=== PATIENT | female | born 1955 | race Caucasian/White ===

== ENCOUNTER 2022-04-30 06:32 | Day surgery (SDC) | payer MEDICARE, BC, SELFPAY ==
[2022-04-30] MEDS: KETOROLAC OPHTH 0.5% 1 DROP EYE-LEFT ×2 (06:55→07:00)
[2022-04-30] MEDS: TETRACAINE 0.5% OPHTH 1 DROP EYE-LEFT ×2 (06:55→07:00)
[2022-04-30] MEDS: SODIUM CHLORIDE 0.9 % (FLUSH) 10 ML SYRINGE IVF (07:15)
[2022-04-30 07:18] VITALS: BP 142/69; PULSE 62; RESP 20; TEMP 36.6; O2SAT 100
[2022-04-30 07:21] VITALS: BMI 41.1
[2022-04-30] MEDS: TETRACAINE 0.5% OPHTH 2 DROP EYE-LEFT (08:02)
[2022-04-30] MEDS: BALANCED SALT IRRIG SOLN 15 ML EYE-LEFT (08:07)
--- NOTE | 2022-04-30 08:11 | W.ANESCHARGE ---
Anesthesia Charges Start Date/Time Anesthesia Start Date: 04/30/22 Anesthesia Start Time: 07:58 Stop Date/Time Anesthesia Stop Date: 04/30/22 Anesthesia Stop Time: 08:28 Summary Emergency: No
[2022-04-30 08:27] VITALS: BP 149/71; PULSE 62; RESP 20; O2SAT 96
--- NOTE | 2022-04-30 08:36 | PM.PROC ---
Procedure Note Date Seen: 04/30/22 Will [facility] bill your pro fee for this procedure?: Yes Procedure Description: SURGEON: Marissa Fontaine MD PREOPERATIVE DIAGNOSIS: Nuclear sclerotic cataract, left eye. POSTOPERATIVE DIAGNOSIS: Nuclear sclerotic cataract, left eye. NAME OF OPERATION: Phacoemulsification of cataract with posterior chamber intraocular lens implantation in the left eye. ANESTHESIA: Topical. ESTIMATED BLOOD LOSS: Less than 2 cc. COMPLICATIONS: None. PATHOLOGY SPECIMEN: None. INDICATIONS: See consult note for details. The risks, benefits and alternatives of the procedure were explained to the patient, who elected to proceed and signed informed consent to do so. PROCEDURE: The patient was brought to the pre-holding area where the left eye was identified as the operative eye. I placed my initials above this eye. The patient received eye drops consisting of 0.5% tetracaine, 1% tropicamide, 10% phenylephrine, and 0.5% ketorolac. The patient was then brought to the operating room where the left eye was again identified as the operative eye. The eye was prepped with Betadine and draped in the usual sterile ophthalmic fashion. A #15 super-sharp blade was used to create a paracentesis site. 1% non-preserved intracameral lidocaine was injected into the anterior chamber. Endocoat was injected into the anterior chamber. A 2.4 mm keratome was used to create a three-plane self-sealing incision 1 mm anterior to the temporal limbus. A cystotome was used to create an anterior capsular leaflet. The Utrata forceps were used to extend this to form a continuous curvilinear capsulorrhexis. Hydrodissection was performed. The cataract was removed with phacoemulsification using the [id number] technique. The irrigation and aspiration tip was used to remove the remaining cortex. Healon was injected into the capsular bag. An PARK ZCB00 intraocular lens of 19.0 diopters was injected into the capsular bag. The irrigation and aspiration tip was used to remove the remaining viscoelastic. Balanced salt solution on a cannula was used to hydrate the wound, and the wound was found to be watertight. The pupil was noted to be round. DISPOSITION: The patient was taken to the recovery room and discharged to home in stable condition. The patient was instructed to call me or go to the emergency department with any sudden change, including dramatic loss of vision, severe pain in the eye or eyebrow region, nausea, or vomiting. The patient will follow up in the clinic tomorrow morning. Surgeon: Marissa Fontaine MD
--- NOTE | 2022-04-30 08:46 | W.ANESCHARGE ---
Anesthesia Charges Start Date/Time Anesthesia Start Date: 04/30/22 Anesthesia Start Time: 07:58 Stop Date/Time Anesthesia Stop Date: 04/30/22 Anesthesia Stop Time: 08:28 Summary Emergency: No
--- NOTE | 2022-04-30 08:58 | SUR.PHASEII ---
The eye drops brought by the patient (Ketorolac and Prednisolone) are examined and I have determined they are labeled by the patient's pharmacy for this patient as prescribed by the surgeon. The bottles are intact, recently obtained and appear to be correct.
--- NOTE | 2022-04-30 10:44 | SUR.PREOP ---
0650 TIME?OUT:? PT/RN/MDA?VERIFICATION?OF?SURGICAL?SITE,?PROCEDURE,?AND?CONSENT OBTAINED?PRIOR?TO?INVASIVE?PROCEDURE.
== END 2022-04-30 08:52 | disposition home or self-care (01) ==
PROVIDERS: Visit Provider Ophthalmology
PROC: (CPT 66984; principal; 2022-04-30 06:45)
DX: H25.12 Age-related nuclear cataract, left eye (principal)
CPT/HCPCS: 66984; 00142; A9270; J2250; J3010; V2632

== ENCOUNTER 2022-05-16 05:56 | Day surgery (SDC) | payer MEDICARE, BC, SELFPAY ==
[2022-05-16] MEDS: TETRACAINE 0.5% OPHTH 1 DROP EYE-RIGHT ×2 (06:15→06:20)
[2022-05-16] MEDS: KETOROLAC OPHTH 0.5% 1 DROP EYE-RIGHT ×2 (06:15→06:20)
[2022-05-16 06:24] VITALS: BMI 39.4
[2022-05-16 06:43] VITALS: BP 152/68; PULSE 65; RESP 16; TEMP 36.3; O2SAT 99
[2022-05-16] MEDS: BALANCED SALT IRRIG SOLN 15 ML EYE-RIGHT (06:56)
[2022-05-16] MEDS: TETRACAINE 0.5% OPHTH 2 DROP EYE-RIGHT (06:56)
--- NOTE | 2022-05-16 07:42 | W.ANESCHARGE ---
Anesthesia Charges Start Date/Time Anesthesia Start Date: 05/16/22 Anesthesia Start Time: 07:10 Stop Date/Time Anesthesia Stop Date: 05/16/22 Anesthesia Stop Time: 07:40 Summary Emergency: No
[2022-05-16] MEDS: ONDANSETRON 2 MG/ML inj 4 MG IVP (07:45)
--- NOTE | 2022-05-16 07:54 | W.ANESCHARGE ---
Anesthesia Charges Start Date/Time Anesthesia Start Date: 05/16/22 Anesthesia Start Time: 07:10 Stop Date/Time Anesthesia Stop Date: 05/16/22 Anesthesia Stop Time: 07:40 Summary Emergency: No
[2022-05-16 07:57] VITALS: BP 148/72; PULSE 64; RESP 16; TEMP 36.2; O2SAT 100
--- NOTE | 2022-05-16 10:56 | P.PCN_ITS ---
Procedure Note Date Seen: 05/16/22 Will [facility] bill your pro fee for this procedure?: Yes Procedure Description: SURGEON: Marissa Fontaine MD PREOPERATIVE DIAGNOSIS: Nuclear sclerotic cataract, right eye. POSTOPERATIVE DIAGNOSIS: Nuclear sclerotic cataract, right eye. NAME OF OPERATION: Phacoemulsification of cataract with posterior chamber intraocular lens implantation in the right eye. ANESTHESIA: Topical. ESTIMATED BLOOD LOSS: Less than 2 cc. COMPLICATIONS: None. PATHOLOGY SPECIMEN: None. INDICATIONS: See consult note for details. The risks, benefits and alternatives of the procedure were explained to the patient, who elected to proceed and signed informed consent to do so. PROCEDURE: The patient was brought to the pre-holding area where the right eye was identified as the operative eye. I placed my initials above this eye. The patient received eye drops consisting of 0.5% tetracaine, 1% tropicamide, 10% phenylephrine, and 0.5% ketorolac. The patient was then brought to the operating room where the right eye was again identified as the operative eye. The eye was prepped with Betadine and draped in the usual sterile ophthalmic fashion. A #15 super-sharp blade was used to create a paracentesis site. 1% non-preserved intracameral lidocaine was injected into the anterior chamber. Endocoat was injected into the anterior chamber. A 2.4 mm keratome was used to create a three-plane self-sealing incision 1 mm anterior to the temporal limbus. A cystotome was used to create an anterior capsular leaflet. The Utrata forceps were used to extend this to form a continuous curvilinear capsulorrhexis. Hydrodissection was performed. The cataract was removed with phacoemulsification using the [id number] technique. The irrigation and aspiration tip was used to remove the remaining cortex. Healon was injected into the capsular bag. An PARK ZCB00 intraocular lens of 18.5 diopters was injected into the capsular bag. The irrigation and aspiration tip was used to remove the remaining viscoelastic. Balanced salt solution on a cannula was used to hydrate the wound, and the wound was found to be watertight. The pupil was noted to be round. DISPOSITION: The patient was taken to the recovery room and discharged to home in stable condition. The patient was instructed to call me or go to the emergency department with any sudden change, including dramatic loss of vision, severe pain in the eye or eyebrow region, nausea, or vomiting. The patient will follow up in the clinic tomorrow morning. Surgeon: Marissa Fontaine MD
== END 2022-05-16 08:15 | disposition home or self-care (01) ==
PROVIDERS: PCP Student in an Organized Health Care Education/Training Program; Visit Provider Ophthalmology
PROC: (CPT 66984; principal; 2022-05-16 06:15)
DX: H25.11 Age-related nuclear cataract, right eye (principal)
CPT/HCPCS: 66984; 00142; A9270; J2250; J2405; J3010; V2632

== ENCOUNTER 2025-02-02 11:14 | Emergency (ER) | payer OTHER, MEDICARE, BC, SELFPAY ==
[2025-02-02 11:24] VITALS: BP 128/74; PULSE 73; RESP 18; TEMP 36; O2SAT 96; BMI 43.9
--- NOTE | 2025-02-02 12:09 | CRLHL7_ITS ---
For Patients: As a result of the Century Cures Act, medical imaging exams and procedure reports are released immediately into your electronic medical record. You may view this report before your referring provider. If you have questions, please contact your health care provider. INDICATION: Ankle Injury, fall from a ladder at work TECHNIQUE: Ankle radiograph 3 views left COMPARISON: None FINDINGS: Bone: Moderate diffuse osteopenia is present. Remote fracture deformity of the distal fibula is suspected. There is a small plantar calcaneal spur present. Joint: The ankle mortise joint and the visualized hindfoot joints are unremarkable in appearance. No significant ankle effusion is seen. Soft tissue: Nodular calcifications are present in the medial soft tissues of the distal calf. No radiopaque foreign bodies are seen. IMPRESSIONS: 1. No acute osseous injuries or abnormalities are noted. 2. Nodular calcifications are present in the medial soft tissues of the distal calf. Correlation with clinical history is recommended to exclude dermatomyositis. Dictated by Dong Lama MD @ 02/02/2025 12:59:30 PM Dictated by: Dong Lama MD @ 02/02/2025 12:59:31 (Electronically Signed)
--- NOTE | 2025-02-02 12:09 | CRLHL7_ITS ---
For Patients: As a result of the Century Cures Act, medical imaging exams and procedure reports are released immediately into your electronic medical record. You may view this report before your referring provider. If you have questions, please contact your health care provider. INDICATION: Foot Injury, fall from a ladder at work TECHNIQUE: Foot radiograph 3 views left COMPARISON: None FINDINGS: Bone: No acute fractures or aggressive bone lesions are identified. There is a small plantar calcaneal spur present. Evaluation of the digits on the lateral examination is moderately degraded due to overlapped digit positioning and toe flexion on all views. Moderate diffuse osteopenia is present. 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 Mild osteoarthritis of the 1st metatarsal-phalangeal joint is noted. No significant ankle effusion is seen. Soft tissue: Unremarkable. No radiopaque foreign bodies are seen. Sheet-like calcifications of the medial distal calf are noted. IMPRESSIONS: 1. No acute osseous injuries or abnormalities are noted. 2. Sheet-like calcifications of the medial distal calf are noted. Correlation with clinical history is recommended to exclude dermatomyositis. Dictated by Dong Lama MD @ 02/02/2025 12:58:38 PM Dictated by: Dong Lama MD @ 02/02/2025 12:58:43 (Electronically Signed)
--- NOTE | 2025-02-02 13:47 | ED.GENADULT ---
HPI - General Adult General Time Seen by Provider: 13:47 Date Seen: 02/02/25 Chief complaint: Extremity Pain/Injury, Lower Stated complaint: L foot injury at work Time Seen by Provider: 02/02/25 13:40 Source: patient Mode of arrival: ambulatory Limitations: no limitations History of Present Illness HPI narrative: [place] 69-year-old female with hypertension, hyperlipidemia presents emergency department via private car from work with a left foot injury. Patient states she was at work walking down a step ladder on the 2nd step to the bottom she felt pain in the top of her left foot, she denies rolling her ankle. There has not been any significant swelling, popping sensation. She was able to ambulate on that foot. Patient currently takes Plavix from previous [place]. She denies any numbness or tingling or swelling to the area. No other injury noted. Related Data Home Medications ?Medication ?Instructions ?Recorded ?Confirmed aspirin 81 mg chewable tablet 81 mg PO DAILY 04/29/22 02/02/25 atorvastatin 80 mg tablet (Lipitor) 80 mg PO DAILY 04/29/22 02/02/25 clopidogrel 75 mg tablet (Plavix) 75 mg PO DAILY 04/29/22 02/02/25 losartan 25 mg tablet (Cozaar) 25 mg PO DAILY 04/29/22 02/02/25 metoprolol succinate 25 mg 12.5 mg PO DAILY 04/29/22 02/02/25 tablet,extended release 24 hr (Toprol XL) nitroglycerin 0.3 mg sublingual 0.3 mg sublingual Q5M 04/29/22 02/02/25 tablet (Nitrostat) diphenhydramine HCl 25 mg capsule 75 mg PO QHS 02/02/25 02/02/25 (Allergy (diphenhydramine)) Allergies Allergy/AdvReac Type Severity Reaction Status Date / Time amoxicillin Allergy Severe Verified 02/02/25 11:21 Sulfa (Sulfonamide Allergy Severe Verified 02/02/25 11:21 Antibiotics) nickel Allergy Intermediate Blister Verified 02/02/25 11:21 red dye Allergy Intermediate Blister Verified 02/02/25 11:21 Review of Systems Status of ROS: Reports: 10 or more systems reviewed and unremarkable except as noted in History and below [facility] Medical History (Updated 02/02/25 @ 13:57 by Pio Houston MD) CAD (coronary artery disease) ?I25.10 - Atherosclerotic heart disease of [place] coronary artery without angina pectoris (ICD-10) Surgical History (Updated 04/29/22 @ 10:37 by Joann Watt RN) Hx of heart artery stent ?Z95.5 - Presence of coronary angioplasty implant and graft (ICD-10) Social History Do you use any of these nicotine containing products: None How often do you have a drink containing alcohol: never How often do you have six or more drinks on one occasion: Never AUDIT-C Alcohol total score: 0 Non-prescribed substance use: denies use Caffeine: Yes Are you using contraception or practicing any form of control: No Exam Narrative: Exam Narrative: General: NAD sitting comfortably Lungs: Clear to auscultation bilaterally Heart: Normal sinus rhythm S1-S2 Abdomen: Soft Muscle skeletal: Left lower extremity, no rashes, nontender the proximal tibia and fibula, tender to palpation the anterior proximal foot, no ecchymosis or swelling, nontender to palpation the lateral medial malleolus, active dorsal and plantar flexion with no difficulty, CMS intact. Neuro: Alert awake and oriented x3 Const: Vital Signs, click to edit/add: Vital Signs - 24 hr 02/02/25 11:24 Temperature 96.8 F L Pulse Rate [Pulse Oximeter] 73 Respiratory Rate 18 Blood Pressure [Ri ght Forearm] 128/74 Pulse Oximetry 96 Oxygen Delivery Me thod Room Air Course Course ED Course: 1:30 PM: aidet performed. Vitals are normal at this time. Workup will include imaging of the left foot and ankle XR 4+ views, patient does not want anything for pain, will plan to rule out fracture versus strain. Differential diagnosis include but not limited to strain, fracture, dislocation, ligament injury, arthritis as well as all etiologies Reevaluation(s) Time of Reevaluation #1: 13:51 Reevaluation #1: Imaging: IMPRESSIONS: 1. No acute osseous injuries or abnormalities are noted. 2. Sheet-like calcifications of the medial distal calf are noted. Correlation with clinical history is recommended to exclude dermatomyositis. Reevaluation #2: Patient was updated on imaging results, she was offered a surgical shoe but she declined at this time, will continue with RICE, Tylenol 1000 mg every 6 hours as needed for pain, follow-up with primary care provider as needed over the next 7-10 days, return precautions given. Vital Signs Vital signs: Initial Vital Signs Temperature 96.8 F L 02/02/25 11:24 Temperature Source Temporal Artery Scan 02/02/25 11:24 Pulse Rate 73 02/02/25 11:24 Pulse Rhythm Regular 02/02/25 11:24 Respiratory Rate 18 02/02/25 11:24 Blood Pressure 128/74 02/02/25 11:24 Blood Pressure Mean 92 02/02/25 11:24 Blood Pressure Position Sitting 02/02/25 11:24 Pulse Oximetry 96 02/02/25 11:24 Oxygen Delivery Method Room Air 02/02/25 11:24 Vital Signs Temperature 96.8 F L 02/02/25 11:24 Pulse Rate 73 02/02/25 11:24 Respiratory Rate 18 02/02/25 11:24 Blood Pressure 128/74 02/02/25 11:24 Pulse Oximetry 96 02/02/25 11:24 Oxygen Delivery Method Room Air 02/02/25 11:24 Temperature 96.8 F L 02/02/25 11:24 Pulse Rate 73 02/02/25 11:24 Respiratory Rate 18 02/02/25 11:24 Blood Pressure 128/74 02/02/25 11:24 Pulse Oximetry 96 02/02/25 11:24 Oxygen Delivery Method Room Air 02/02/25 11:24 Discharge Plan Discharge Clinical Impression: Injury of foot, left Patient Disposition: Home, Self-Care Instructions: P.R.I.C.E. Treatment (ED) Additional Instructions: Tylenol 1000 mg every 6 hours as needed for pain, continue with rest, ice, compression and elevation. Follow up with primary care provider if pain persists, 7-10 days. Consideration for further imaging at that time. Activity Level: No Restrictions Prescriptions: No Action aspirin 81 mg tablet,chewable 81 mg PO DAILY atorvastatin [Lipitor] 80 mg tablet 80 mg PO DAILY clopidogrel [Plavix] 75 mg tablet 75 mg PO DAILY losartan [Cozaar] 25 mg tablet 25 mg PO DAILY metoprolol succinate [Toprol XL] 25 mg tablet extended release 24 hr 12.5 mg PO DAILY nitroglycerin [Nitrostat] 0.3 mg tablet, sublingual 0.3 mg sublingual Q5M Rx Instructions: do not exceed 3 doses per episode diphenhydramine HCl [Allergy (diphenhydramine)] 25 mg capsule 75 mg PO QHS Follow Up/Referrals: Agustín Espinoza MD [Primary Care Provider] - Stand Alone Forms: [employer] Info Instructions
--- OUTSIDE RECORDS SUMMARY | 2025-02-02 17:22 | XMS_ITS | Encounter Summary ---
Author Organization [facility] Address [address] [place] [address] Care Team Providers Care Plumber And Tinner Name Role Phone Keegan Espinoza M.D. Primary Care Provider [phone] Reason for Visit * Reason Comments Med Refill Encounter Details Date Type Department Care Team (Late st Contact Info) Description 12/23/2024 Refill Department of Orthopedic Surgery in [place], [place] [address] [place] [phone] Mary Lou Sow D.P.M. [address] [place] [phone] Med Refill Social History Tobacco Use Types Packs/Day Years Used Date Smoking Tobacco: Never Smokeless Tobacco: Never Alcohol Use Standard Drinks/Week Comments Not Currently 0 (1 standard drink = 0.6 oz pur e alcohol) Humiliation, Afraid, Rape, and Kick questionnair e Answer Date Recorded Within the last year, have y ou been afraid of your partner or ex-partner? No 11/22/2021 Within the last year, have y ou been humiliated or emotionally abused in other ways by your partner or ex-partner? No Within the last year, have y ou been kicked, hit, slapped, or otherwise physically hurt by your partner or ex-partner? No 11/22/2021 Within the last year, have y ou been raped or forced to have any kind of sexual activity by your partner or ex-partner? No 11/22/2021 Social Connection and Isolat ion Panel [NHANES] Answer Date Recorded In a typical week, how many times do you talk on the phone with family, friends, or neighbors? More than three times a week 11/22/2021 How often do you get togethe r with friends or relatives? Three times a week 11/22/2021 How often do you attend chur ch or voodoo services? 1 to 4 times per year 11/22/2021 Do you belong to any clubs o r organizations such as yazdanism groups, unions, fraternal or athletic groups, or school groups? No 11/22/2021 How often do you attend meet ings of the clubs or organizations you belong to? Never 11/22/2021 Are you , , di vorced, , never , or living with a partner? 11/22/2021 AUDIT-C Answer Date Recorded Q1: How often do you have a drink containing alc ohol? Never 11/22/2021 Average Number of Drinks Not on file 022 Frequency of Binge Drinking Not on file 12/2021 Overall Financial Resource Strain (CARDIA) Answe r Date Recorded How hard is it for you to pa y for the very basics like food, housing, medical care, and heating? Not hard at all 11/22/2021 PHQ-2 Answer Date Recorded PHQ-2 Score 0 11/02/2023 [facility] - Occupational Stress Questionnaire Answer Date Recorded Do you feel stress - tense, restless, nervous, or anxious, or unable to sleep at night because your mind is troubled all the time - these days? Not at all 11/22/2021 Exercise Vital Sign Answer Date Recorde d On average, how many days pe r week do you engage in moderate to strenuous exercise (like a brisk walk)? 5 days 11/22/2021 On average, how many minutes do you engage in exercise at this level? 150+ min 11/22/2021 Hunger Vital Sign Answer Date Recorded Within the past 12 months, y ou worried that your food would run out before you got the money to buy more. Never true 11/23/19 22 Within the past 12 months, t he food you bought just didn't last and you didn't have money to get more. Never true 11/22/2021 PRAPARE - Transportation Answer Date Re corded In the past 12 months, has l ack of transportation kept you from medical appointments or from getting medications? No 12/2021 In the past 12 months, has l ack of transportation kept you from meetings, work, or from getting things needed for daily living? No 11/22/2021 Housing Stability Vital Sign Answer Kodi e Recorded In the last 12 months, was t here a time when you were not able to pay the mortgage or rent on time? No 11/22/2021 In the last 12 months, how many places have you lived? 1 11/22/2021 In the last 12 months, was t here a time when you did not have a steady place to sleep or slept in a group home (including now)? No 11/22/2021 Depression Answer Date Recor ded PHQ-9 Total Score (max 27) 9 12/31 Nutrition Answer Date Recorded On average, how many serving s of fruits and vegetables do you eat per day (serving size is equal to 1 cup or approximately the size of a tennis ball)? 2-3 11/22/2021 Dental Answer Date Recorded Dental: Regular Dentist Unknown 11/30/19 25 Employment Answer Date Recorded Employment status Employed and actively working without restrictions 11/22/2021 Education Answer Date Recorded What is the highest level of school you have completed or the highest degree you have received? 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 [address] [place] [phone] Discharge Disposition: Home or Self Care 03/22/2025 2:00 PM CDT Office Visit Department of Family Medicine, [facility], in [address] [phone] documented as of this encounter Visit Diagnoses Diagnosis Keratosis Plantar documented in this encounter Additional Health Concerns Assessment Noted Time PHQ-9 Depression Total Score: 9 01/01/20 22 8:46 AM CDT documented as of this encounter Care Teams Plumber And Tinner Relationship Specialty Start Date End Date Keegan Espinoza M.D. [address] [place] [phone] PCP - General 03/05/17 documented as of this encounter
--- OUTSIDE RECORDS SUMMARY | 2025-02-02 17:22 | XMS_ITS | Encounter Summary ---
Author Organization [facility] Address [address] [place] [address] Care Team Providers Care Verification Manager Name Role Phone Keegan Espinoza M.D. Primary Care Provider [phone] Reason for Referral * Outpatient (Routine) - Authorized Specialty Diagnoses / Procedures Referred By Contac t Referred To Contact Keegan Espinoza M.D. [id number] [place] [phone] Phone: tel: fax: [facility] Region Referral ID Status Reason Start Date Expiration Date V isits Requested Visits Authorized [id number] Authorized 12/28/2024 06/29/2026 1 1 Scheduling Instructions Nurse AWV Do not schedule prior to due date to ensure insurance coverage Visit: Medicare Annual Wellness due on 11/03/2024. Encounter Details Date Type Department Care Team (Late st Contact Info) Description 12/28/2024 Orders Only [facility] Keegan Espinoza M.D. [phone] [place] [phone] Social History Tobacco Use Types Packs/Day Years [...] week 11/22/2021 How often do you attend [facility] or catholic services? 1 to 4 times per year 11/22/2021 Do you belong to any clubs o r organizations such as christianity groups, unions, fraternal or athletic groups, or [...] Answer Date Recorded PHQ-2 Score 0 11/02/2023 [facility] of Occupat ional Health - Occupational Stress [...] place to sleep or slept in a halfway (including now)? 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 [address] [place] [phone] Discharge Disposition: Home or Self Care 03/22/2025 2:00 PM CDT Office Visit Department of Family Medicine, [facility], in [address] [phone] Scheduled Referrals Name Type Priority Associated Diagnoses Orde r Schedule Primary Care nurse visit (clinic) - [facility] Region; Medicare Annual Wellness Outpatient Referral Routine Expected: 01/25/2025, Expires: 06/16/2025 documented as of this encounter Visit Diagnoses Not on filedocumented in this encounter Additional Health Concerns Assessment Noted Time PHQ-9 Depression Total Score: 9 01/01/20 22 8:46 AM CDT documented as of this encounter Care Teams Verification Manager Relationship Specialty Start Date End Date Keegan Espinoza M.D. [address] [place] [phone] PCP - General 03/05/17 documented as of this encounter
--- OUTSIDE RECORDS SUMMARY | 2025-02-02 17:22 | XMS_ITS | Clinical Summary ---
Author Organization [facility] Address [address] [place] [id number] Care Team Providers Care Hand Scudder Name Role Phone Pcp, No Primary Care Provider Unavailabl e Medications No known medications Active Problems Problem Noted Date Diagnosed Date Early dry stage nonexudative age-related macular degeneration of both eyes 01/14/2018 Family History Medical History Relation Name Comments Macular degeneration Brother 1 Josiah Macular degeneration Brother 2 Rick Macular degeneration Mother Relation Name Status Comments Brother 1 Josiah Alive Brother 2 Rick Alive Mother Social History Tobacco Use Types Packs/Day Years Used Date Smoking Tobacco: Never Smokeless Tobacco: Never Alcohol Use Standard Drinks/Week Comments No 0 (1 standard drink = 0.6 oz pur e alcohol) Comments Unknown Sex and Gender Information Value Date Recorded Sex Assigned at Not on file Legal Sex Female 7:38 AM [employer] Gender Identity Not on file Sexual Orientation Not on file Obstetrics History Plan of Treatment Health Maintenance Due Date Last Done Comments Tdap 1965 Depression screening for age 12+ 1966 BMI (ht and wt on same day) for age 18+ 1972 Hepatitis C screening for age 18-79 1972 Tetanus booster 1974 Colonoscopy through age 75 1999 Lipids for age 45-75 1999 Mammogram for age 45-75 1999 Pneumococcal series for age 50+ (1 of 1 - PCV) 004 Zoster (shingles) series for age 50+ (1 of 2) 08/13/20 04 DEXA/DXA scan for age 65+ 2019 03/15/2009 COVID-19 vaccine series ( - 2023- season) Influenza Vaccine (Season Ended) 2025 RSV vaccine for adults or pr egnancy (1 - 1-dose 75+ series) 2029 Procedures Procedure Name Priority Date/Time Associated Diagnosis Comments XR DXA BONE DENSITY 2 SITES AXIAL Routine 03/15/2009 1:56 PM CDT Post-Menopausal from Last 3 Months or Most Recently Relevant to Health Maintenance Results * XR DEXA BONE DENSITY 2 SITES (03/15/2009 1:56 PM CDT) Anatomical Region Laterality Modality Spine, HIPS, HIPL, HIPR Other 03/15/2009 1:56 PM CDT Narrative 03/20/2009 11:38 AM CDT Please see scanned document for results of this study. Procedure Note Adilia Shin PA - 03/21/2009 Please see scanned document for results of this study. us Provider Referring DEXA Final Result from Last 3 Months or Most Recently Relevant to Health Maintenance Insurance [employer] [place] [employer] [place] ONLY Care Teams Hand Scudder Relationship Specialty Start Date End Date Pcp, No . PCP - General 11/04/17
--- OUTSIDE RECORDS SUMMARY | 2025-02-02 17:22 | XMS_ITS | Data Portability ---
Author Organization [place] [facility] [employer] Address [address] [place] [address] Assessment Encounter Date Assessment Date Assessment LastModified by Organization Details LastModified Time 06/09/2024 06/09/2024 I did discussed findings with the patient as detailed down below. At this time, patient was advised that we will await her custom orthotics mid June and will presents back to us for modifications moving forward. I did discuss that she does have evidence of osteopenia on radiographs and I would recommend that she obtain a bone density scan through her primary care provider for evaluation. She endorses that she was previously recommended to undergo this by her PCP, however did not obtain it at the time. Not available 06/10/2024 10:43:43 08/25/2024 08/25/2024 I did discussed findings with the patient as detailed down below. At this time I did modify her previously casted custom orthotics to include an offloading 5th metatarsal base cutout and she mentions that she had significant relief in symptoms. I did recommended to the patient to pursue treatment if recommended by her PCP for her osteoporosis. Will be seen back in a few weeks for a recheck. Not available 08/26/2024 10:10:36 09/22/2024 09/22/2024 I did discussed findings with the patient as detailed down below. At this time her previous orthotic modifications have been greatly helpful at reducing her symptoms and we will modify her other orthotics at this time. The patient will be seen back in a few weeks after modification of this new set for a recheck. Not available 09/23/2024 14:43:19 12/15/2024 12/15/2024 I did discussed findings with the patient as detailed down below. At this time her previous orthotic modifications have been greatly helpful at reducing her symptoms and we will modify her orthotics at this time with further padding. The patient attempted these in clinic and she noticed a great reduction in symptoms. We will proceed with further modification at this time. The patient will be seen back in a few weeks after modification of this new set for a recheck. Not available 12/16/2024 12:00:05 Plan of Treatment Reminders Order Date Submit Date Provider Last Modified By Organization Details Last Modified Time Details Appointments Office Visit 2024 03:30P M Red Boris Not available Not available Not available Lab None recorde d. Referral None recorde d. Procedures None recorde d. Surgeries None recorde d. Imaging None recorde d. Medication Orders None recorde d. Patient TargetsNo targets recorded. Patient InstructionsNo instructions recorded. Reason for Referral None Reported. Medical Equipment None Reported. Medications Name Sig Start Date Stop Date Status Note LastModified by Organization Details LastModified Time atorvastatin 80 mg tablet TAKE ONE TABLET BY MOUTH ONE TIME DAILY* active Not Available Not Available Not Available fluorouracil 5 % topical cream Apply topically twice a day to skin lesions soles of feet* active Not Available Not Available No t Available phentermine 15 mg capsule TAKE ONE CAPSULE BY MOUTH EVERY DAY IN THE MORNING.* active Not Available Not Available No t Available triamcinolon e acetonide 0.1 % topical cream APPLY TO AFFECTED AREAS OF SKIN (RASH ON BACK) TWICE DAILY NEEDED FOR UP TO 2 WEEKS AT A TIME.* active Not Available Not Available No t Available cefadroxil 500 mg capsule TAKE 1 CAPSULE BY MOUTH TWICE DAILY FOR 7 DAYS active Not Available Not Available No t Available ciclopirox 8 % topical solution Apply over nail and surrounding skin once daily at bedtime. Apply daily over previous coat. After seven (7) days, may remove with alcohol and continue cycle.* active Not Available Not Available No t Available benzonatate 100 mg capsule TAKE ONE CAPSULE BY MOUTH THREE TIMES DAILY NEEDED FOR COUGH* active Not Available Not Available N ot Available erythromycin 5 mg/gram (0.5 %) eye ointment apply 1 cm ribbon into the conjunctiva l sac in both eyes by ophthalmic route once in the evening before bedtime* active Not Available Not Available No t Available losartan 25 mg tablet TAKE ONE TABLET BY MOUTH ONE TIME DAILY* active Not Available Not Available Not Available Drysol Dab-O-Matic 20 % topical solution Apply topically to soles of feet at bedtime* active Not Available Not Available No t Available metoprolol succinate ER 25 mg tablet,exten ded release 24 hr Take 1 tablet (25 mg total) by mouth daily. Do not crush or chew.* active Not Available Not Available No t Available fluocinonide 0.05 % topical cream Apply topically to the affected area(s) of dermatitis up to 2 times a day as needed for rash.* active Not Available Not Available N ot Available doxycycline hyclate 100 mg tablet TAKE ONE TABLET BY MOUTH TWICE DAILY* active Not Available Not Available No t Available Vitals None Recorded Social History None recorded. Functional Status None recorded. Mental Status None recorded. Family History Nothing Reported. Medical History No medical history recorded. Gynecological HistoryNo gynecological history recorded. 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 [id number] 771957 M21.622 Osteopenia [id number] M85 .872 [facility] [address] [place] [id number] 4 08/25/2024 16:30:37 08/26/2024 10:52:57 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 [id number] 678583 M21.622 Osteopenia 947551502 M85 .872 Now formal diagnosis of osteoporos is on bone scan [id number] Red Escalante [facility] [place] [facility] [address] [place] [id number] 4 09/22/2024 16:10:50 09/23/2024 15:41:21 Fat pad syndrome 575621172 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 1413113364 956770 M21.622 Osteopenia 898426243 M85 .872 Now formal diagnosis of osteoporos is on bone scan [id number] Red Escalante DPM [place] [facility] [address] [place] [address] 4 12/15/2024 16:20:14 12/16/2024 13:08:41 Fat pad syndrome 546735022 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 4999165317 364991 M21.622 Osteopenia 228228411 M85 .872 Now formal diagnosis of osteoporos is on bone scan Health Concerns Section Related Observation LastModified by Organization Detai ls LastModified Time None Recorded Concern Status LastModified by Organization Details LastModified Time None Recorded Advance Directives Directive None Recorded Payers Encounter Date Sequence Insurance Name Policy Number Policy Tejeda Covered Member ID Tejeda Member ID Guarantor Name 06/09/2024 1 [employer] [id number] Whitney Stollo [id number] Torie Delfino 08/25/2024 1 [place] [id number] Whitney Stollo [id number] Torie Delfino 09/22/2024 1 [place] [id number] Whitney Stollo [id number] Torie Delfino 12/15/2024 1 [place] [id number] Whitney Stollo [id number] Torie Delfino Notes Date Note Type Note Provider Name and Address Organization Details Recorded Time 06/09/2024 text/html Patient 68 y/o n ew patient female presents here today for second opinion regarding left sided foot pain. Mentions that the pain was located under the outside aspect of the left foot. Patient stated that she was previously seen by [facility] for similar complaint. They recommended her the use of custom orthotics which is currently being made by [employer] and will arrive in June. She was also given medication to reduce callus formation. She endorsed that at this time she continues to have pain daily and present today for further cares and a 2nd opinion Red Escalante DPM [address] [place], [address], [facility] 06/10/2024 10:43:48 08/25/2024 text/html Patient 68 y/o established patient female presents here today for left sided foot pain. Mentions that the pain is located under the outside aspect of the left foot. Patient stated that she was previously seen by [facility] for similar complaint. They recommended her the use of custom orthotics which she mentions was made by [employer] in June, however she did not have any symptom relief with the use of these devices. She endorsed that at this time she continues to have pain daily and present today for further cares. Red Escalante DPM [address] [place] [address], [phone], [facility] 08/26/2024 10:10:43 09/22/2024 text/html Patient 69 y/o established patient female presents here today for recheck of foot pain. The patient mentions that since starting orthotic modifications she has noticed total resolution of foot pain at this time. She is interested in pursuing modifications to another pair of orthotics at this time. Red Escalante DPM [address] [place], [address], [facility] 09/23/2024 14:43:28 12/15/2024 text/html Patient 69 y/o established patient female presents here today for recheck of foot pain. The patient mentions that since starting orthotic modifications she has noticed total resolution of foot pain for some time, however she is inquiring about further modification due to slight increase in symptoms at this time. Red Escalante DPM [address] [place], [address], [facility] 12/16/2024 12:00:15 OBGyn Episode No OBEpisode recorded.
--- OUTSIDE RECORDS SUMMARY | 2025-02-02 17:22 | XMS_ITS | Clinical Summary ---
Author Organization [facility] Address [address] [place] [address] Care Team Providers Care Research Advisor Name Role Phone Keegan Espinoza M.D. Primary Care Provider [phone] [phone] Source Comments Patient records contain information from all sites at [facility]. For routine questions regarding patient records, call [phone] during business hours, M-F 8:00 AM - 5:00 PM Central Time. Record requests for emergency care only can be directed to [phone] at any time.[facility] Allergies Active Allergy Reactions Criticality Noted Date Comments Adhesive Tape-Silicones Other (see comments) Low 01/16/2012 Nickel Rash Low 04/05/2013 Phenylephrine-Guaifene sin Itching Low 11/21/2011 Red Dye Rash High 10/10/2021 Sulfa (Sulfonamide Antibiotics) Rash Low 12/20/2012 Wheat Rash Low 04/05/2013 Rivaroxaban Other (see comments) High 11/04/2021 Medication contains red dye; patient experienced a burn type rash on skin Medications * This document contains information received from the source organization and may not represent a complete record from that organization. acetaminophen (TYLENOL) 500 mg tablet Take 1,500 mg by mouth 2 (two) times a day as needed for pain, headaches or fever. Active diphenhydrAMINE (BENADRYL) 50 mg capsule Take 50 mg by mouth every 6 (six) hours as needed. Active vitamins A,C,E-zinc-suhail er (ICAPS AREDS) 14,320 Units-226 mg-200 Units per capsule Take 1 capsule by mouth daily. Active fluocinonide (LIDEX) 0.05 % creamIndication s:Dermatitis Apply topically 2 (two) times a day as needed for rash. Apply to dermatitis up to twice daily as needed. . 60 g 3 4 Active TURMERIC ROOT EXTRACT ORAL Take by mouth. 2 capsules daily Active triamcinolone (Kenalog) 0.1 % cream APPLY TO AFFECTED AREAS OF SKIN (RASH ON BACK) TWICE DAILY NEEDED FOR UP TO 2 WEEKS AT A TIME.* Active metoprolol succinate (Toprol XL) 25 mg 24 hr tablet Take 1 tablet (25 mg total) by mouth daily. Do not crush or chew. 90 tablet 3 4 07/24/20 25 Active losartan (Cozaar) 25 mg tabletIndicatio ns:Hypertensive Heart Disease Without Heart Failure TAKE ONE TABLET BY MOUTH ONE TIME DAILY 90 tablet 5 Active atorvastatin (Lipitor) 80 mg tabletIndicatio ns:Atherosclero tic Heart Disease Of [place] Coronary Artery Without Angina Pectoris TAKE ONE TABLET BY MOUTH ONE TIME DAILY 90 tablet 5 Active fluorouraciL (Efudex) 5 % creamIndication s:Keratosis Plantar Apply topically twice a day to skin lesions soles of feet 40 g 5 Active Active Problems Problem Noted Date Diagnosed Date Osteoporosis 08/31/2024 Coronary Stent Status Post 01/06/2022 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 Hypertensive Heart Disease Without Heart Failure 03/05/2012 Resolved Problems Problem Noted Date Diagnosed Date Resolved Date ST Elevation Myocardial Infa rction Involving Left Anterior Descending Coronary Artery 12/23/2021 01/06/2022 ST Elevation Myocardial Infa rction Of Unspecified Site 12/22/2021 01/06/2022 COVID-19 Infection 08/08/2021 3 Wart Plantar 09/16/2018 08/31/2024 Encounters Date Type Department Care Team Description 12/28/2024 Orders Only [facility] P[facility] Keegan Espinoza M.D. 12/23/2024 Refill Department of Orthopedic Surgery in [address] [phone] Mary Lou Benton am, D.P.M. Med Refill 12/22/2024 Refill Department of Family Medicine, [facility], in [address] [phone] Keegan Espinoza M.D. Med Refill 12/08/2024 Clinical Communication Department of Family Medicine, [facility], in [address] [phone] Keegan Espinoza M.D. Health Maintenance 12/02/2024 Clinical Communication Department of Family Medicine, [facility], in [address] [phone] Keegan Espinoza M.D. Health Maintenance from Last 3 Months Immunizations Immunization Administration Dates Next Due DTaP, Unspecified 10/10/2021(Deferred: Patient d ecision) HepB (discontinued) adolesce nt/high risk 03/21/2003,06/29/2002 HepB Adult 05/18/2002 HepB, Unspecified 03/21/2003,06/29/2002 Influenza, Unspecified 10/10/2021(Deferred: Kavitha ent decision) PPSV23 10/10/2021(Deferred: Patient dec ision) RZV (SHINGRIX) 10/10/2021(Deferred: Patient dec ision) Td (Adult), adsorbed 05/22/2007 Tdap 06/17/2023 Family History Medical History Relation Name Comments Liver cancer Father Macular degeneration Mother Relation Name Status Comments Father Mother Alive Social History Tobacco Use Types Packs/Day Years Used Date Smoking Tobacco: Never Smokeless Tobacco: Never Tobacco Cessation:Counseling Given: Not Answered Alcohol Use Standard Drinks/Week Comments Not Currently [...] often do you attend chur ch or alevism services? 1 to 4 times per year 11/22/2021 Do you belong to any clubs o r organizations such as uatsdin groups, unions, fraternal or athletic groups, or [...] Answer Date Recorded PHQ-2 Score 0 11/02/2023 [facility] of Occupat ional Health - Occupational Stress [...] place to sleep or slept in a intermediate (including now)? No 11/22/2021 Depression Answer Date [...] Sex Assigned at Female 08/31/2024 4:10 PM MAIL CARRIER TECHNICIAN Legal Sex Female 7:59 AM MAIL CARRIER TECHNICIAN Gender Identity Not on file Sexual Orientation Straight 08/31/2024 4: 10 PM MAIL CARRIER TECHNICIAN Last Filed Vital Signs Vital Sign Reading Time Taken Comments Blood Pressure 141/68 09/02/2024 11:00 AM MAIL CARRIER TECHNICIAN Pulse 83 08/31/2024 4:14 PM MAIL CARRIER TECHNICIAN Temperature 36.9 C (98.4 F) 09/02/2024 8:25 AM MAIL CARRIER TECHNICIAN Respiratory Rate 20 09/02/2024 11:00 AM MAIL CARRIER TECHNICIAN Oxygen Saturation 98% 09/02/2024 11:00 AM MAIL CARRIER TECHNICIAN Inhaled Oxygen Concentration - - Weight 102 kg (224 lb 6.9 oz) 08/31/2024 4:14 PM MAIL CARRIER TECHNICIAN Height 158 cm (5' 2.21) 08/31/2024 4:14 PM MAIL CARRIER TECHNICIAN Body Mass Index 40.78 08/31/2024 4:14 PM MAIL CARRIER TECHNICIAN Plan of Treatment Upcoming Encounters Date Type Department Care Team (Late st Contact Info) Description 03/22/2025 1:00 PM CDT Appointment Department of Radiology in [address] [phone] Keegan Espinoza M.D. [address] [place] [phone] Discharge Disposition: Home or Self Care 03/22/2025 2:00 PM CDT Office Visit Department of Family Medicine, [facility], in [address] [phone] Health Maintenance Due Date Last Done Comments CT Colonography 1954 Cologuard 1955 FIT 1954 Hepatitis C Screening 1954 Pneumococcal vaccine (50+ years) (1 of 2 - PCV) 1973 10/10/2021 Zoster Vaccines (1 of 2) 2004 10/10/2021 RSV vaccine - (32-36 weeks) or 60+ years (1 - Risk 60-74 years 1-dose series) 2014 Mammogram 02/26/2017 02/27/2016, 10/22, 05/08/2009, Additional history exists COVID-19 Vaccine ( season) 2024 Influenza Vaccine (#1) 2024 10/10/2021 Depression Screening (Annual PHQ-2) 09/21/2024 Fall Risk Screen (Annual) 09/21/2024 Visit: Medicare Annual Wellness 11/03/2024 11/02/2023 Colonoscopy 11/15/2024 11/15/2014 Colorectal Cancer Screening 11/15/2024 Office Visit for Blood Pressure Check / Re-check 08/31/2025 08/31/2024 Visit: Chronic Disease, age 18+ 08/31/2025 08/31/2024 Creatinine Level (Kidney Function Test) 09/02/2025 09/02/2024, 10/12/2023, 12/22/2022, Additional history exists Potassium Level 09/02/2025 09/02/2024, 09/22, 12/22/2022, Additional history exists Sodium Level 09/02/2025 09/02/2024, 09/22, 12/22/2022, Additional history exists Fasting Glucose for Diabetes Screening 09/02/2027 09/02/2024, 10/12/2023, 12/22/2022, Additional history exists Lipid (Cholesterol) Screening 12/23/2027 12/22/2022, 12/23/2021, 01/05/2016 DTaP,Tdap,and Td Vaccines (2 - Td or Tdap) 06/17/2033 06/17/2023, 10/10/2021, 05/22/2007 Hepatitis B Vaccines Completed 03/21/2003, 03/21/2003, 06/29/2002, Additional history exists Bone Density Scan (Osteoporosis Screen) Discontinued 07/11/2024 IPV Vaccines Aged Out No longer eligi ble based on patient's age to complete this topic Medical Devices Implanted Type Area Building Trades Teacher Device Identifier Shelf Expiration Date Model / Serial / Lot Stnt Synergy Xd De 3.50x20 - [id number] Implanted:Qty: 1 on 12/22/2021 by King Us M.D. at [facility] Cardiac Stent N/A: Coronary [employer] 08/05/2023 [id number] / / [id number] Description:Proximal LAD Conversions - Default Historical Implant Device Implanted:01/29 (Quantity not on file) Knee Implant Right: Knee Description:Body Location - Knee R. Device Status Text - Knee Imp. Stent Contour 8 X 24 - [place] [id number] Implanted:Qty: 1 on 09/18/2004 Ureteral Stent Bladder [employer] Description:Device Manufactu rer - [employer]. Device Status Text - [id number]. Scp-Sling Fgs - [place] [id number] Implanted:Qty: 1 on 02/16/2003 Urogenital Implant [employer] Description:Device Manufactu rer - [employer]. Device Status Text - [id number]. Explanted Type Area Building Trades Teacher Device Identifier Shelf Expiration Date Model / Serial / Lot Conversions - Default Historical Implant Device - [place] [id number] Explanted:01/29 (Quantity not on file) Ureteral Stent Bladder Description:Device Status Te xt - [id number]. Procedures Procedure Name Priority Date/Time Associated Diagnosis Comments COMPREHENSIVE METABOLIC PANEL, S/P STAT 09/02/2024 8:44 AM MAIL CARRIER TECHNICIAN LIPID PANEL, S Routine 12/22/2022 4:45 PM CDT Atherosclerotic Heart Disease Of [place] Coronary Artery Without Angina Pectoris Coronary Stent Status Post Hypertensive Heart Disease Without Heart Failure BI BREAST SCREENING BILATERAL Routine 02/27/2016 9:13 AM CDT from Last 3 Months or Most Recently Relevant to Health Maintenance Results * (ABNORMAL) Comprehensive Metabolic Panel (09/02/2024 8:44 AM MAIL CARRIER TECHNICIAN) Pathologist [facility] Potassium, P 4.3 3.6 - 5.2 mmol/L 09/02/2024 9:05 AM MAIL CARRIER TECHNICIAN CNFL Sodium, P 141 135 - 145 mmol/L 09/02/2024 9:05 AM MAIL CARRIER TECHNICIAN CNFL Chloride, P 105 98 - 107 mmol/L 09/02/2024 9:05 AM MAIL CARRIER TECHNICIAN CNFL Bicarbonate, P 27 22 - 29 mmol/L 09/02/2024 9:05 AM MAIL CARRIER TECHNICIAN CNFL Anion Gap, P 9 7 - 15 09/02/2024 9:05 AM MAIL CARRIER TECHNICIAN CNFL BUN (Blood Urea Nitrogen), P 23(H) 6 - 21 mg/dL 09/02/2024 9:05 AM MAIL CARRIER TECHNICIAN CNFL Creatinine 0.70 0.59 - 1.04 mg/dL 09/02/2024 9:05 AM MAIL CARRIER TECHNICIAN CNFL Estimated GFR (eGFR) >90 >=60 mL/min/BS A 09/02/2024 9:05 AM MAIL CARRIER TECHNICIAN CNFL Comment: Estimated GFR calculated using the 2020 CKD_EPI creatinine equation. Calcium, Total, P 8.9 8.8 - 10.2 mg/dL 09/02/2024 9:05 AM MAIL CARRIER TECHNICIAN CNFL Glucose, P 105 70 - 140 mg/dL 09/02/2024 9:05 AM MAIL CARRIER TECHNICIAN CNFL Protein, Total, P 6.0(L) 6.3 - 7.9 g/dL 09/02/2024 9:05 AM MAIL CARRIER TECHNICIAN CNFL Albumin, P 3.9 3.5 - 5.0 g/dL 09/02/2024 9:05 AM MAIL CARRIER TECHNICIAN CNFL Aspartate Aminotransferase (AST), P 31 8 - 43 U/L 09/02/2024 9:05 AM MAIL CARRIER TECHNICIAN CNFL Alkaline Phosphatase, P 95 35 - 104 U/L 09/02/2024 9:05 AM MAIL CARRIER TECHNICIAN CNFL Alanine Aminotransferase (ALT), P 24 7 - 45 U/L 09/02/2024 9:05 AM MAIL CARRIER TECHNICIAN CNFL Bilirubin, Total, P 0.4 0.0 - 1.2 mg/dL 09/02/2024 9:05 AM MAIL CARRIER TECHNICIAN CNFL Blood (Blood, Venous) 09/02/2024 8:44 AM MAIL CARRIER TECHNICIAN 09/02/2024 8:46 AM MAIL CARRIER TECHNICIAN us Pio Houston M.D. LAB BLOOD ADD-ON Final Resul t [facility] [address] [place] [id number], [facility] CNFL [facility] in [address] [address] * Lipid Panel (12/22/2022 4:45 PM CDT) Triglycerides 68 mg/dL 12/22/2022 5:15 PM CDT CNFL Comment: ----REFERENCE VALUE---- Normal: <150 mg/dL Borderline High: 150-199 mg/dL High: 200-499 mg/dL Very High: > or =500 mg/dL Cholesterol, Total 117 mg/dL 2022 5:15 PM CDT CNFL Comment: ----REFERENCE VALUE---- Desirable: < 200 mg/dL Borderline High: 200 - 239 mg/dL High: > or = 240 mg/dL Cholesterol, LDL, Calculated 47 mg/dL 12/22/2022 5:15 PM CDT CNFL Comment: ----REFERENCE VALUE---- Desirable: <100 mg/dL Above Desirable: 100-129 mg/dL Borderline High: 130-159 mg/dL High: 160-189 mg/dL Very High: >=190 mg/dL ----ADDITIONAL INFORMATION---- LDL cholesterol calculated using the Hernandez/NIH equation. Cholesterol, HDL 56 >=50 mg/dL 12/23/19 5:15 PM CDT CNFL Cholesterol, Non-HDL, Calculated 61 mg/dL 12/22/2022 5:15 PM CDT CNFL Comment: ----REFERENCE VALUE---- Desirable: <130 mg/dL Above Desirable: 130-159 mg/dL Borderline High: 160-189 mg/dL High: 190-219 mg/dL Very High: > or =220 mg/dL Fasting (8 HR or more) Yes 12/22/2022 4:48 PM CDT CNFL Blood (Blood, Venous) 12/22/2022 4:45 PM CDT 12/22/2022 4:48 PM CDT us Keegan Espinoza M.D. LAB BLOOD ADD-ON Final Re sult [facility] [address] [place] [id number], [facility] CNFL [facility] in [address] [address] * BI Breast Screening Bilateral (02/27/2016 9:13 AM CDT) Anatomical Region Laterality Modality Breast Bilateral Mammography 02/27/2016 9:13 AM CDT Impressions 02/27/2016 2:27 PM CDT Negative. RECOMMENDATION: Annual screening mammography. BI-RADS ASSESSMENT: 1: Negative. LETTER: L1/2S Electronically signed by: Amie Gong MD [id number] 27-Feb-2016 14:27 Niall Liz MD [phone] 27-Feb-2016 14:27 Narrative 02/27/2016 2:27 PM CDT 27-Feb-2016 09:13:00 Exam: Mammo Screen Bilat Indications: screening ORIGINAL REPORT - 27-Feb-2016 14:27:00 EXAM: Digital Screening Mammography Bilateral Computer-aided detection equipment was used during interpretation. COMPARISON: Prior exams were available for comparison. DENSITY: b. There are scattered areas of fibroglandular density. FINDINGS: No mammographic findings of malignancy. No significant masses, calcifications, or other findings in either breast. Procedure Note Kathleen Gong M.D. - 12/17/2017 27-Feb-2016 09:13:00 Exam: Mammo Screen Bilat Indications: screening ORIGINAL REPORT - 27-Feb-2016 14:27:00 EXAM: Digital Screening Mammography Bilateral Computer-aided detection equipment was used during interpretation. COMPARISON: Prior exams were available for comparison. DENSITY: b. There are scattered areas of fibroglandular density. FINDINGS: No mammographic findings of malignancy. No significant masses,calcifications, or other findings in either breast. IMPRESSION: Negative. RECOMMENDATION: Annual screening mammography. BI-RADS ASSESSMENT: 1: Negative. LETTER: L1/2S Electronically signed by: Amie Gong MD [id number] 27-Feb-2016 14:27 Niall Liz MD [id number] 14:27 Keegan Espinoza M.D. [employer]Grace BI PROCEDURES Final R esult from Last 3 Months or Most Recently Relevant to Health Maintenance Insurance MEDICARE [facility] Advance Directives For more information, please contact: [phone] * Full Code (Latest Code Status on File) Date Activated Date Inactivated Comments 12/22/2021 10:50 PM 12/24/2021 2:28 PM Question Answer Comments Full Code: Discussed Care Teams Research Advisor Relationship Specialty Start Date End Date Keegan Espinoza M.D. [id number] [place] [phone] PCP - General 03/05/17
--- OUTSIDE RECORDS SUMMARY | 2025-02-02 17:45 | XMS_ITS | Clinical Summary ---
Author Organization [facility] Address [address] [place] [address] Care Team Providers Care Rehab Physician Name Role Phone Pcp, No Primary Care [...] on file Legal Sex Female 7:38 AM LENS GRINDER Gender Identity Not on file Sexual Orientation [...] Relevant to Health Maintenance Insurance BLUE CROSS [employer]I BLUE MR PB ONLY Care Teams Rehab Physician Relationship Specialty Start Date End Date Pcp, No . PCP - General 11/04/17
--- OUTSIDE RECORDS SUMMARY | 2025-02-02 17:45 | XMS_ITS | Encounter Summary ---
Author Organization [facility] Address [address] [place] [address] Care Team Providers Care [employer] Financials Consultant Name Role Phone Keegan Espinoza M.D. Primary Care Provider [phone] [phone] Reason for Referral * Outpatient (Routine) - Authorized Specialty Diagnoses / Procedures Referred By Contac t Referred To Contact Keegan Espinoza M.D. [id number] [place] [phone] Phone: tel: fax: [facility] Region Referral ID Status Reason Start Date Expiration Date V isits Requested Visits Authorized [id number] Authorized 12/28/2024 06/29/2026 1 1 Scheduling Instructions Nurse AWV Do not schedule prior to due date to ensure insurance coverage Visit: Medicare Annual Wellness due on 11/03/2024. Encounter Details Date Type Department Care Team (Late st Contact Info) Description 12/28/2024 Orders Only [facility] PCP [facility] Keegan Espinoza M.D. [id number] [place] [phone] Social History Tobacco Use Types Packs/Day [...] week 11/22/2021 How often do you attend [facility] or synagogue services? 1 to 4 times per year 11/22/2021 Do you belong to any clubs o r organizations such as scientology groups, unions, fraternal or athletic groups, or [...] Answer Date Recorded PHQ-2 Score 0 11/02/2023 [facility] of Occupat ional Health - Occupational Stress [...] place to sleep or slept in a mcfp (including now)? No 11/22/2021 Depression Answer Date [...] Sex Assigned at Female 08/31/2024 4:10 PM GASKET WINDER Legal Sex Female 7:59 AM GASKET WINDER Gender Identity Not on file Sexual Orientation Straight 08/31/2024 4: 10 PM GASKET WINDER documented as of this encounter Plan of Treatment Upcoming Encounters Date Type Department Care Team (Late st Contact Info) Description 03/22/2025 1:00 PM CDT Appointment Department of Radiology in [address] [phone] Keegan Espinoza M.D. [address] [place] [phone] Discharge Disposition: Home or Self Care 03/22/2025 2:00 PM CDT Office Visit Department of Family Medicine, [facility], in [address] [phone] Scheduled Referrals Name Type Priority Associated Diagnoses Orde r Schedule Primary Care nurse visit (clinic) - [facility] Region; Medicare Annual Wellness Outpatient Referral Routine Expected: 01/25/2025, Expires: 06/16/2025 documented as of this encounter Visit Diagnoses Not on filedocumented in this encounter Additional Health Concerns Assessment Noted Time PHQ-9 Depression Total Score: 9 01/01/20 22 8:46 AM CDT documented as of this encounter Care Teams [employer] Consultant Relationship Specialty Start Date End Date Keegan Espinoza M.D. [address] [place] [phone] PCP - General 03/05/17 documented as of this encounter
--- OUTSIDE RECORDS SUMMARY | 2025-02-02 17:45 | XMS_ITS | Encounter Summary ---
Author Organization [facility] Address [address] [place] [address] Care Team Providers Care Seat Pack Inspector Name Role Phone Keegan Espinoza M.D. Primary Care Provider [phone] [phone] Reason for Visit * Reason Comments Med Refill Encounter Details Date Type Department Care Team (Late st Contact Info) Description 12/22/2024 Refill Department of Family Medicine, [facility] [place] [facility], in [address] [phone] Keegan Espinoza M.D. [address] [place] [phone] Med Refill Social History Tobacco Use Types [...] often do you attend chur ch or mormon services? 1 to 4 times per year 11/22/2021 Do you belong to any clubs o r organizations such as gnosticism groups, unions, fraternal or athletic groups, or [...] Answer Date Recorded PHQ-2 Score 0 11/02/2023 [facility] of Occupat ional Health - Occupational Stress [...] place to sleep or slept in a prison (including now)? No 11/22/2021 Depression Answer Date [...] Sex Assigned at Female 08/31/2024 4:10 PM PRODUCTION TROUBLESHOOTER Legal Sex Female 7:59 AM PRODUCTION TROUBLESHOOTER Gender Identity Not on file Sexual Orientation Straight 08/31/2024 4: 10 PM PRODUCTION TROUBLESHOOTER documented as of this encounter Plan of Treatment Upcoming Encounters Date Type Department Care Team (Late st Contact Info) Description 03/22/2025 1:00 PM CDT Appointment Department of Radiology in [address] [phone] Keegan Espinoza M.D. [address] [place] [phone] Discharge Disposition: Home or Self Care 03/22/2025 2:00 PM CDT Office Visit Department of Family Medicine, [facility] [place] [facility], in [address] [phone] documented as of this encounter Visit Diagnoses Diagnosis Hypertensive Heart Disease Without Heart Failure Atherosclerotic Heart Disease Of [place] Coronary Artery Without Angina Pectoris documented in this encounter Additional Health Concerns Assessment Noted Time PHQ-9 Depression Total Score: 9 01/01/20 22 8:46 AM CDT documented as of this encounter Care Teams Seat Pack Inspector Relationship Specialty Start Date End Date Keegan Espinoza M.D. [address] [place] [phone] PCP - General 03/05/17 documented as of this encounter
--- OUTSIDE RECORDS SUMMARY | 2025-02-02 17:45 | XMS_ITS | Encounter Summary ---
Author Organization [facility] Address [address] [place] [address] Care Team Providers Care Coverstitch Binder Name Role Phone Keegan Espinoza M.D. Primary Care Provider [phone] [phone] Reason for Visit * Reason Comments Med Refill Encounter Details Date Type Department Care Team (Late st Contact Info) Description 12/23/2024 Refill Department of Orthopedic Surgery in [place], [place] [address] [place] [phone] Mary Lou Sow D.P.M. [address] [place] [phone] Med Refill Social History Tobacco Use Types [...] often do you attend chur ch or presybeterian services? 1 to 4 times per year 11/22/2021 Do you belong to any clubs o r organizations such as tenriism groups, unions, fraternal or athletic groups, or [...] Answer Date Recorded PHQ-2 Score 0 11/02/2023 [facility] of Occupat ional Health - Occupational [...] place to sleep or slept in a half-way (including now)? No 11/22/2021 Depression Answer Date [...] Sex Assigned at Female 08/31/2024 4:10 PM MAINTENANCE MECHANIC TECHNICIAN Legal Sex Female 7:59 AM MAINTENANCE MECHANIC TECHNICIAN Gender Identity Not on file Sexual Orientation Straight 08/31/2024 4: 10 PM MAINTENANCE MECHANIC TECHNICIAN documented as of this encounter Plan of Treatment Upcoming Encounters Date Type Department Care Team (Late st Contact Info) Description 03/22/2025 1:00 PM CDT Appointment Department of Radiology in [address] [phone] Keegan Espinoza M.D. [address] [place] [phone] Discharge Disposition: Home or Self Care 03/22/2025 2:00 PM CDT Office Visit Department of Family Medicine, [facility], in [address] [phone] documented as of this encounter Visit Diagnoses Diagnosis Keratosis Plantar documented in this encounter Additional Health Concerns Assessment Noted Time PHQ-9 Depression Total Score: 9 01/01/20 22 8:46 AM CDT documented as of this encounter Care Teams Coverstitch Binder Relationship Specialty Start Date End Date Keegan Espinoza M.D. [address] [place] [phone] PCP - General 03/05/17 documented as of this encounter
== END 2025-02-02 14:09 | disposition home or self-care (01) ==
LOC: ED 13:57
PROVIDERS: Emergency Provider Student in an Organized Health Care Education/Training Program; PCP Student in an Organized Health Care Education/Training Program
DX: S99.922A Unspecified injury of left foot, initial encounter (principal); X50.1XXA Overexertion from prolonged static or awkward postures, initial encounter; Y99.0 Civilian activity done for income or pay
CPT/HCPCS: 73610; 73630; 99283; 99284